=== PATIENT | male | born 1990 | race Caucasian/White ===

== ENCOUNTER 2023-12-22 03:25 | Emergency (ER) | payer SELFPAY ==
[~2023-12-22] VITALS: Ht 172.7 cm; Wt 86.2 kg
[2023-12-22 03:39] VITALS: BP 140/87; PULSE 119; RESP 16; TEMP 97.4; O2SAT 96
[2023-12-22 04:00] VITALS: BP 140/87; PULSE 119; RESP 16; TEMP 97.4; O2SAT 96
== END 2023-12-22 04:00 ==
LOC: MED 03:25
DX: V49.88XA Car occupant (driver) (passenger) injured in other specified transport accidents, initial encounter; Y93.89 Activity, other specified; Y92.89 Other specified places as the place of occurrence of the external cause; Y99.8 Other external cause status
CPT/HCPCS: 99283